=== PATIENT | female | born 1985 | race Caucasian/White ===

== ENCOUNTER 2017-01-30 22:33 | Outpatient (CLI) | payer OTHER ==
[~2017-01-30] VITALS: Ht 167.6 cm; Wt 103.2 kg
[2017-01-30] MEDS ORDERED: PRENATAL1 TA7 PO (23:07)
[2017-01-30] MEDS ORDERED: PRILOTC (23:08)
[2017-01-30] MEDS ORDERED: ZYRTEC ALLERGY10 MG PO (23:08)
[2017-01-30 23:15] VITALS: BP 129/71; PULSE 69; TEMP 98.2
== END 2017-01-31 00:17 | disposition home or self-care (01) ==
LOC: LDRO 22:33
DX: O62.9 Abnormality of forces of labor, unspecified (principal); Z3A.38 38 weeks gestation of pregnancy

== ENCOUNTER 2017-01-31 06:56 | Inpatient (IN) | payer OTHER ==
[~2017-01-31] VITALS: Ht 167.6 cm; Wt 103.2 kg
[2017-01-31] VITALS (48 sets, daily range): BP systolic 86–136; BP diastolic 46–86; PULSE 63–104; TEMP 97.6–99.2
[~2017-01-31 06:56] MED LIST: PRENATAL1 TA7 PO; PRILOTC; ZYRTEC ALLERGY10 MG PO
[2017-01-31 08:07] LABS: HEMOGLOBIN 12.7 g/dl (12.5-16.0); MEAN CELL VOLUME 78 fl (80.0-100.0); MEAN CORPUSCULAR HEMOGLOBIN 27 pg (27.0-31.0); MEAN CORPUSCULAR HGB CONC 35 g/dl (33.0-37.0); MEAN PLATELET VOLUME 11.9 fl (7.4-10.4); PLATELET COUNT 241 K/mm3 (130-400); RED BLOOD COUNT 4.71 M/mm3 (4.10-5.30); REDCELL DISTRIBUTION WIDTH-CV 12.8 % (11.5-14.5); WHITE BLOOD COUNT 12.7 K/mm3 (4.8-10.8)
[2017-01-31 08:09] LABS: HEMATOCRIT 36.7 % (37.0-47.0)
[2017-01-31 08:10] LABS: ADD PATHOLOGY DIFF REVIEW NO
[2017-01-31 08:32] LABS: BAND 8 % (0-10); NEUTROPHILS 76 % (42.0-75.2); PLATELET ESTIMATE NORMAL (NORMAL); TOTAL CELLS COUNTED 100
[2017-02-01 01:20] VITALS: BP 123/71; PULSE 81; TEMP 98.8
[2017-02-01 05:27] VITALS: BP 122/62; PULSE 76; TEMP 98.3
[2017-02-01 08:20] VITALS: BP 119/65; PULSE 86; TEMP 98.1
[2017-02-01 16:30] VITALS: BP 102/50; PULSE 64; TEMP 97.9
[2017-02-01 19:45] VITALS: BP 115/66; PULSE 59; TEMP 98.8
[2017-02-02 07:00] VITALS: BP 125/67; PULSE 66; TEMP 97.9
[2017-02-02] MEDS ORDERED: IBU800 M1 PO (08:33)
== END 2017-02-02 13:10 | disposition home or self-care (01) | DRG 775 ==
LOC: LDRO 06:56 → LDR 07:20 → OB 07:20
PROVIDERS: Obstetrics & Gynecology
PROC: 10E0XZZ Delivery of Products of Conception, External Approach (ICD-10-PCS; principal; 2017-01-31)
PROC: 0KQM0ZZ Repair Perineum Muscle, Open Approach (ICD-10-PCS; 2017-01-31)
DX: O70.1 Second degree perineal laceration during delivery (principal); O76 Abnormality in fetal heart rate and rhythm complicating labor and delivery; Z3A.39 39 weeks gestation of pregnancy; Z37.0 Single live birth
CPT/HCPCS: J2590; J2795; J7120

== ENCOUNTER 2019-07-17 07:19 | Inpatient (IN) | payer OTHER ==
[~2019-07-17] VITALS: Ht 167.6 cm; Wt 105.9 kg
[2019-07-17] VITALS (33 sets, daily range): BP systolic 89–1108; BP diastolic 52–70; PULSE 59–88; TEMP 97.5–98.1
[~2019-07-17 07:19] MED LIST changes: +IBU800 M1 PO; +PRENATAL; -PRENATAL1 TA7 PO; +TYLENOL 500MG500 MG; +ZYRTEC 10MG10 MG PO
--- NOTE | 2019-07-17 07:25 | NUR ---
0725-G2L1 39.[address] Hi's ambulatory to [facility]5 for scheduled induction of labor. Reports GFM, Denies LOF or VB. VSS, see flow record. Assessment complete. Updated on plan of care. 0755-IV to right hand by SilvestreRN, blood collected and sent to lab per order. IVF infusing per protocol. 0808- to patient room, reviews plan of care. 0810-SVE by , AROM clear fluid /-2 per MD.
[2019-07-17] MEDS ORDERED: PRILOSEC 20MG20 MG PO (07:37)
--- NOTE | 2019-07-17 08:13 | NUR ---
0813-Pitocin started per MD order and Protocol, see EMAR
[2019-07-17 08:14] LABS: BASO % 0.3 % (0.0-2.0); EOS # 0.1 (0.0-0.7); EOS % 1.7 % (0-4.0); GRAN % 66.5 % (42.2-75.2); HEMOGLOBIN 13.6 g/dl (12.5-16.0); LYMPH # 1.8 (1.2-3.4); LYMPH % 23.8 % (20.0-51.0); MEAN CELL VOLUME 83 fl (80.0-100.0); MEAN CORPUSCULAR HEMOGLOBIN 29 pg (27.0-31.0); MEAN CORPUSCULAR HGB CONC 35 g/dl (33.0-37.0); MEAN PLATELET VOLUME 11.9 fl (7.4-10.4); MONO # 0.5 (0.1-0.6); PLATELET COUNT 199 K/mm3 (130-400); RED BLOOD COUNT 4.71 M/mm3 (4.10-5.30); REDCELL DISTRIBUTION WIDTH-CV 12.6 % (11.5-14.5)
--- NOTE | 2019-07-17 08:58 | NUR ---
0858-Difficulty tracing FHR, RN at bedside adjusting EFM. 0920-Difficulty tracing FHR, RN at bedside adjusting EFM, Repositioned WR.
--- NOTE | 2019-07-17 09:45 | NUR ---
0945-Patient requests epidural. IVF bolus infusing per protocol. 1000-DIANA Buckner in patient room, Patient sitting upright on bedside for placement, RN frequenly adjusting EFM difficulty tracing FHR 1003-RN paused pitocin due to difficulty tracing FHR 1007-SS administered by DIANA Buckner, patient tolerated well, see flow record VSS. 1009-Test dose administered by DIANA Buckner see anesthesia records. VSS 1010-Pit resumed at 8mu/min 1023-Maternal BP 102/61, denies symptoms of hypotension 1027-Maternal BP 96/53, treated with 10mg ephedrine per orders and protocol, see EMAR. 1035-Maternal BP 122/66 Updated on plan of care. 1055-Tidwell to DD, clear yellow urine return, SVE /-2 mary care provided. Repositioned WL with peanut ball.
--- NOTE | 2019-07-17 11:30 | NUR ---
1130-Patient rotates WR RN adjusts EFM. 1134-Maternal BP 89/52 10mg ephedrine given, see EMAR. 1145-Maternal BP 95/50 1147-10mg ephedrine given, see EMR. 1149-Maternal BP 115/57
--- NOTE | 2019-07-17 11:50 | NUR ---
1150-MD Called unit for update. Reviewed eipdural placment and SVE at 1055 4-5 stretchy and -1 station. Reviewed hyptoension and need for ephedrine dosage per protocol. Reviwed strip with MD. MD requests SVE and update now. SVE 8-100/0. MD reports will head in to unit now. 1215-Dr. Hi on unit. 1218-SVE by /+2 Set up for delivery 1224-Patient begins pushing with MD at bedside. Moves vertex well. 1227-Spontaneous delivery of head. Patient continues to push with contraction. Patient head of bed lowered and Kezia began. Delivery of viable male infant after 35 second shoulder dystocia. Infant to mothers abdomen. True knot in umbilical cord noted by MD. Delayed cord clamping by MD Care of infant assumed by ROHIT Hodge Apgars 8/9/10. Cord clamped x2 and cut by FOB. 1233-Spontaneous delivery of intact placenta by MD. Fundal massage, fundus initially boggy, firms with massage. pitocin bolus per protocol and MD order. Moderate amount of lochia, fundal massage persists. MD gives VO for methergine IM. 1240-IM methergine given in LLE, see EMAR. Fundus firm, lochia WNL. EBL 500ml. Second degree perineal laceration repaired by MD. Melanie care provided. Updated on safety and plan of care.
[2019-07-17] MEDS ORDERED: MOTRIN 800800 MG/TAB PO (13:02)
--- NOTE | 2019-07-17 16:00 | NUR ---
1600-Patient unable to void on bedpan, LLE remains unable to be lifted off bed. Straight cath by this RN 1000ml clear yellow urien return, mary care provided. Updated on safety and plan of care.
[2019-07-18 00:20] VITALS: BP 118/56; PULSE 74; TEMP 98.1
[2019-07-18 04:05] VITALS: BP 128/56; PULSE 75; TEMP 97.8
[2019-07-18 08:35] VITALS: BP 116/68; PULSE 77; TEMP 98.2
--- NOTE | 2019-07-18 12:31 | NUR ---
Car[employer] Tool [employer] Maker offered congrats to spouse who was in room. Patient was taking shower. [employer] Maker visited briefly with spouse.
== END 2019-07-18 14:15 | disposition home or self-care (01) | DRG 807 ==
LOC: LDR 07:19 → OB 08:08
PROVIDERS: ADMIT Obstetrics & Gynecology
PROC: 10E0XZZ Delivery of Products of Conception, External Approach (ICD-10-PCS; principal; 2019-07-17)
PROC: 0KQM0ZZ Repair Perineum Muscle, Open Approach (ICD-10-PCS; 2019-07-17)
PROC: 10907ZC Drainage of Amniotic Fluid, Therapeutic from Products of Conception, Via Natural or Artificial Opening (ICD-10-PCS; 2019-07-17)
PROC: 3E033VJ Introduction of Other Hormone into Peripheral Vein, Percutaneous Approach (ICD-10-PCS; 2019-07-17)
DX: O99.214 Obesity complicating childbirth (principal); Z37.0 Single live birth; E66.9 Obesity, unspecified; Z3A.39 39 weeks gestation of pregnancy; O99.344 Other mental disorders complicating childbirth; F32.9 Major depressive disorder, single episode, unspecified; O69.2XX0 Labor and delivery complicated by other cord entanglement, with compression, not applicable or unspecified; O70.1 Second degree perineal laceration during delivery; O66.0 Obstructed labor due to shoulder dystocia
CPT/HCPCS: J2210; J2590; J2795; J7120

== ENCOUNTER → 2019-07-20 | Outpatient (CLI) | payer OTHER ==
[~2019-07-20] MED LIST changes: +MOTRIN 800800 MG/TAB PO; +PRILOSEC 20MG20 MG PO
--- NOTE | 2019-07-20 13:16 | NUR ---
Pt, Ashlie Dayton, presents to outpatient consult with 3 day old baby boy, Gregorio Burris, and her spouse, Gregorio Burris. Jamsmine c/o sore nipples to the point latching is becomes unbearable. Gregorio is Ottoines second baby and was born by on 07/17/2020 and weighed 8#3.6oz (3730 gms). They went home at 24 hours of age and he weighed 7#15oz (3595 gms). Pt reports Gregorio had 2 voids and 6 stools yesterday, so far today no voids and 3 stools that are brown in color. Gregorio' mouth feels dry when LC evaluates suck and palate, he has a lusty cry, appears moderately jaundiced, and has some stridor sounding noises when he is at the breast. Gregorio has a high anterior palate that is likely trapping the nipple and causing pt's soreness. Break down on the face of each nipple is observed with the L>R Pt latches Gregorio to the right breast first, she is jumpy so he removed by LC. Instructions for how to compress and get more areola into his mouth with latch provided and when LC assists to get deeper latch pt states it is a little less painful. After 10 minutes Gregorio has a gain of only 6gms. A nipple shield is placed, Gregorio does not have consistent effort with it and he does not demonstrate a weight gain after this latch. On the left nipple, LC assists with the football hold. Pt jumpy but leaves baby at breast because swallow-type noises. LC unable to determine how much are actual swallows and how much are the stridor noises. After nursing pt has blanched white spots at the center of each nipple, saying the throbbing pain persists after he is done nurse. Raynauds syndrome discussed, advised to place warm compresses on nipples after feeding to see if throbing goes away faster. Gregorio has a total weight gain of 8 gms after . Pt agress to supplment formula by bottle. Baby not receptive to bottle, despite having strong feeding cues after . When is does allow the bottle into his mouth he is thrusting and formula spills out the corners of his mouth and lip. LC attempts bottle feeding without success. Finger feeding done by LC, able to get a little consistent suck effort. Total intake between breast/bottle/finger feeding is 20ml. Report to Dr. Acosta re: weight, moderate jaundice, poor feeding at breast and bottle, and decreased urine output. Orders received for Gregorio to have a bilirubin checked. Gregorio did have a void during the consult that was qs in volume but urate crystals and concentrated uring noted. Also a smear of stool that was brown in color. POC: Feed at least q 3 hours, may bypass breast if soreness prohibits. Supplment 1 oz EBM or formula by bottle or finger feed. Pump q feeding to increase milk supply. F/U: As scheduled with Dr. Wilson tomorrow, or as order by Dr. Acsota after bilirubin completed. requests pt to report status tomorrow after appt. Questions invited and answered. Pt, infant and spouse escorted to [facility] for blood draw at approximately 1420.
== END ==
LOC: OLC 12:35
DX: Z39.1 Encounter for care and examination of lactating mother (principal); Z71.89 Other specified counseling